=== PATIENT | male | born 1995 | race Caucasian/White ===

== ENCOUNTER 2023-08-14 14:12 | Inpatient (IN) | payer OTHER, SELFPAY ==
[2023-08-14 14:31] VITALS: BP 134/86; PULSE 88; RESP 16; TEMP 37.1; O2SAT 95; BMI 24.3
--- NOTE | 2023-08-14 14:31 | ED.GENADULT ---
HPI - General Adult General Chief complaint: Psychiatric Symptoms Stated complaint: evaluation sent in by [facility] Time Seen by Provider: 08/14/23 14:39 Source: patient and family (Father) Mode of arrival: ambulatory Limitations: no limitations History of Present Illness HPI narrative: Patient comes to the emergency room accompanied by his father. The father explains that patient has history of schizophrenia. Patient refused to take his medications since about a year ago, and gradually has been declining. Patient has sabianist preoccupation. Hyperverbal, responding to internal stimuli. Patient is not SI or HI. The patient was taken by his father earlier today to [facility], they were referred to [facility] for further evaluation and treatment. Patient whispering to himself. When asked how patient is feeling, patient responds ?so-so, getting there Related Data Allergies Allergy/AdvReac Type Severity Reaction Status Date / Time No Known Allergies Allergy Unverified 07/23/20 18:48 Review of Systems Review of Systems: Constitutional : No Weight loss, No Fever, No Chills, No Night Sweats, No Fatigue, No Malaise ENT/Mouth : No Hearing loss, No Ear Pain, No Nasal Congestion, No Sinus Pain, No Hoarseness, No sore throat, No Rhinorrhea, No Swallowing Difficulty Eyes: No Eye Pain, No Swelling, No Redness, No Foreign Body, No Discharge, No Vision Changes Cardiovascular : No Chest Pain, No SOB, No Dyspnea on Exertion, No Orthopnea, No Edema, No Palpitations Respiratory : No Cough, No Sputum, No Wheezing, No Smoke Exposure, No Dyspnea Gastrointestinal : No Nausea, No Vomiting, No Diarrhea, No Constipation, No abdominal Pain, No Hematochezia, No Melena Genitourinary : no irregular bleeding, No Dysuria, No Urinary Frequency, No Hematuria, No Urinary Incontinence, No Urgency, No Flank Pain, No Urinary Flow Changes, No Hesitancy Musculoskeletal : No joint pain, No Myalgias, No Joint Swelling Skin : No Skin Lesions, No rash Neuro : No Weakness, No Numbness, No Paresthesias, No Loss of Consciousness, No Dizziness, No Headache Psych : No Anxiety/Panic, No Depression, No SI/HI/AH/VH, patient states he is feeling ?so-so Heme/Lymph: No Bruising, No Bleeding,No Lymphadenopathy Endocrine : No Polyuria, No Polydipsia, No Temperature Intolerance [facility] Past Medical History Medical History Catatonia schizophrenia Schizophrenia Physical Exam ED Vital Signs: Vital Signs - 24 hr 08/14/23 14:31 Temperature 98.7 F Pulse Rate 88 Respiratory Rate 16 Blood Pressure 134/86 Pulse Oximetry 95 Oxygen Delivery Method Room Air BMI result Body Mass Index 24.3 Const Other: Appearance: Alert. Oriented X3. No acute distress. Eyes: Pupils equal, round and reactive to light. ENT: Pharynx normal. Neck: Normal inspection. Neck supple. No lymph nodes noted. No crepitus CVS: Normal heart rate and rhythm. Pulses normal. Normal S1 and S2 Respiratory: No respiratory distress. Breath sounds normal. No Wheezing. No rales Abdomen: Soft and nontender. No rigidity. No distention. Skin: Skin warm and dry. Normal skin color. Normal skin turgor. Extremities: No lower extremity edema. No Lacerations. No Rash Neuro: Oriented X 3. No motor deficit. No sensory deficit. Moving all extremities. No slurred speech. CN 2 through 12 grossly intact Psych: calm, cooperative, whispering to himself Course Course Course Narrative: RME performed by Carlotta Borjas PA-C. Patient is a 28 year old assigned male at presenting to the emergency department for a voluntary psych admission. Labs ordered. Medical Decision Making Medical Decision Making [facility] Narrative: -all of patient lab's pending, care team consult pending -patient's father is at bedside -patient calm, cooperative -physician observation started at 15:15 -I was informed by the care team that patient has already been evaluated by [facility], patient is an inpatient bed search Differential Diagnosis Differential Diagnoses: The differential diagnosis associated with the presentation includes (Schizophrenia, anxiety, depression) Admission/Observation Consideration of admission/observation: Escalation of care including admission/observation considered (Patient will be under observation until an inpatient bed is found for the patient) Critical Care Time Critical Care Time Critical Care Time: Yes Total Critical Care Time: 30 Attestation: I have personally provided critical care time. Time includes review of lab data, radiology results, discussion with consultants, and monitoring for potential decompensation. Intervention performed as documented. Discharge Plan Discharge Clinical Impression: Schizophrenia Patient Disposition: Still a Patient
--- NOTE | 2023-08-14 14:39 | MHC.CARE ---
Pt was assessed by [facility] and VOLUNTARY bedsearch
--- NOTE | 2023-08-14 14:57 | MHC.CARE ---
Pt was assessed by [facility] and found IPLOC
--- NOTE | 2023-08-14 15:26 | PC.NURSE ---
patient and father present for t/w's triage addendum. security don who has prior experience with client states that he may dash out the door impulsively if he sees an oppurtunity so t/w placed flight risk sign out. with father patient reports on gabapentin which he may not take every day for neuropathic pain and ativan po prn daily which he may not have taken for a day r two. patient accepted offer of ice cream and ham sandwich. dad said he would leave and possibly return with clothing for client if he is admitted. t/w advised restricted items, and visit times for both inpatient and for the pod. client declines drug and etoh use. patient did attest to hearing voices through spirit . because of his unique style of expression t/w asked about past autism dx, which client and parent declined.
--- NOTE | 2023-08-14 16:00 | MHC.CARE ---
CARE Team completed Section 12 for Pt.
--- NOTE | 2023-08-14 16:03 | PC.NURSE ---
in last hour, t/w and tech both observed client grabbing head and sometimes yelling out excitedly shannan lao and at one point simulating sex with the air im having sex with Shannan lao
--- NOTE | 2023-08-14 17:03 | PC.NURSE ---
given ordered gabapentin, seated in group area singing jeopardy theme song. some statements you have reason to be concerned
--- NOTE | 2023-08-14 17:07 | PC.NURSE ---
patient frequently self dialoguing in milieu, sometimes making unusual sounds and motions with hands and head.
--- NOTE | 2023-08-14 17:32 | PC.NURSE ---
pat laying in bed, i'm here! I'm back from the !
--- NOTE | 2023-08-14 17:59 | PC.NURSE ---
patient father reported hx that client had treatment w ect in past. patient currently self dialoguing youre not a mahogany patient verbally expressive in positive sounding grunts. redirected and patient complied. trying some moderate stimulus (ice cream) to help ground client.
--- NOTE | 2023-08-14 19:44 | MHC.EDTECH ---
t/w attempted to obtain labs from pt, pt refused stating he would like sleep first.' RN MADE AWARE.
--- NOTE | 2023-08-15 03:18 | PC.NURSE ---
Addendum entered by Darrin Crocker RN 08/15/23 03:44: Entered in error under incorrect user. This RN assumed care at initial time of this note as follows: Assumed care of pt. Pt lying on stretcher, no acute medical or behavioral concerns at this time. Eyes closed, respirations even and unlabored. Continuing safety monitoring and plan of care. Original Note: Assumed care of pt. Pt lying on stretcher, no acute medical or behavioral concerns at this time. Eyes closed, respirations even and unlabored. Continuing safety monitoring and plan of care.
--- NOTE | 2023-08-15 06:00 | PC.NURSE ---
Pt lying on stretcher, no acute medical or behavioral concerns at this time. Eyes closed, respirations even and unlabored. Continuing safety monitoring and plan of care.
[2023-08-15 06:19] VITALS: BP 119/53; PULSE 67; RESP 17; TEMP 36.4; O2SAT 97
--- NOTE | 2023-08-15 06:37 | PC.NURSE ---
Pt currently awake, making gestures around room, door closed, responding to internal stimuli, with hyperfixation on nondenominational; however, AxO x4 when questioned.
--- NOTE | 2023-08-15 07:15 | PC.NURSE ---
patient awake upon t/w's arrival to unit, periodically standing at window and expressive, some calling out (seems to continue pentecostalism preoccupation, looks like prayer) but seems in no distress.
[2023-08-15 15:43] VITALS: BP 135/80; PULSE 79; RESP 16; TEMP 36.8; O2SAT 98
[2023-08-15 17:10] VITALS: BP 128/79; PULSE 78; RESP 18; TEMP 36.4; O2SAT 99
--- NOTE | 2023-08-15 18:22 | PC.ADMIT ---
Sebastian is a 28 year old male who was admitted to the unit as a conditional voluntary from the [facility] where he presented after being assessed in the community by [facility] for psychosis after he was was exhibiting paranoid delusions, responding to internal stimuli, religiously preoccupied, disorganized thoughts, and pressured speech. Sebastian has not been taking medications at home except gabapentin, during admission process he states that he doesn't want any evil medications such as anti-psychotics or anti-depressants . During admission process patient was religiously pre-occupied with a tangential and disorganized thought process. Patient reported that he knows he needs to be here to overcome the trauma of previous admissions and the evil I was exposed to continued on without prompting to declare, God gave me a choice between a path of light or an overcoming path, I chose an overcoming path and I am responsible to act as an overcomer for the world. My purpose is to be the leader of Earth and bring all people's together to [place] .
[2023-08-15 20:25] VITALS: BP 123/81; PULSE 82; RESP 18; TEMP 36.9; O2SAT 100
[2023-08-16 08:51] VITALS: BP 131/81; PULSE 82; RESP 16; TEMP 37; O2SAT 96
--- NOTE | 2023-08-16 09:08 | P.HPPS_ITS ---
HPI Date of Service: 08/16/23 Chief Complaint: crisis Sources of Information: patient interviewed, chart reviewed and crisis/core team assessment reviewed HPI Subjective Notes: Conditional Voluntary Narrative: Patient is a 28 year old male with hx of schizophrenia and multiple psychiatric inpatient admissions who presented to [facility] clinic to establish outpatient services following a recent discharge from [facility] (07/20/23-08/04/23) and [facility] (06/29/23-07/13/23) where he presented with significant psychosis. Per crisis report, pt was observed responding to internal stimuli, restless, religiously preoccupied thoughts, disorganized, paranoid. Pt has a hx of medication non compliance, [place] Orders, catatonia and has limited insight into illness. During admission assessment, patient presents disorganized, guarded, with rapid and pressured speech at times. Religiously preoccupied, observed responding to internal stimuli throughout assessment, verbally and with body movements. Patient reports he is talking to God . Pt stated, I'm here to overcome the things that happened to me and other children by the Nazi's. I remember the procedures here . Pt spontaneously screaming at times, when asked for reasoning behind this, pt stated, I get pain in my brain from the memories. It's shock pains . He reports he feels God and gabapentin will heal me . Patient educated regarding antipsychotics; however he continued to state, God only wants gabapentin . Pt denies SI/HI/VH/AH. T/W spoke with patients mother (Nancy); who reported patient was recently discharged from [facility] but continued to present with psychosis. Patient has a hx of medication non-compliance; she reports patient has a hx of receiving Invega Sustenna with positive effects. Patient does not have any outpatient providers. Patient has a hx of receiving ECT (3 or 4 treatments) in 2018 which was helpful per mother. Nancy stated she would be willing to testify in court if needed to have her son receive medications because she is concerned for his safety. Past Psychiatric History: Inpatient hospitalization, [facility] (07/20/23- 08/04/23) and [facility] (06/29/23-07/13/23). ECT in 2018 (3/4 treatments) hx of Invega sustenna being helpful. Medical Evaluation Reviewed: Yes [facility] Medical History Catatonia schizophrenia Schizophrenia Family History: unknown Social History: Lives with mother, father and grandmother. Substance History: denies Trauma History: unknown Diagnostics Vital Signs (24Hr): Vital Signs - 24 hr 08/15/23 15:43 08/15/23 17:10 08/15/23 20:25 Temperature 98.2 F 97.6 F 98.4 F Pulse Rate 79 78 82 Respiratory Rate 16 18 18 Blood Pressure 135/80 128/79 123/81 Pulse Oximetry 98 99 100 Oxygen Delivery Method Room Air Room Air Room Air 08/16/23 08:51 Temperature 98.6 F Pulse Rate 82 Respiratory Rate 16 Blood Pressure 131/81 Pulse Oximetry 96 Oxygen Delivery Method Room Air BMI result Body Mass Index 24.3 Labs 08/15/23 00:08 08/16/23 08:20 Labs: Laboratory Results - last 48 hr 08/14/23 08/15/23 08/15/23 16:07 00:08 08:45 WBC 9.7 RBC 5.45 Hgb 16.6 Hct 47.1 MCV 86.4 MCH 30.5 MCHC 35.2 RDW 12.3 Plt Count 258 MPV 11.1 Immature Gran % (Auto) 0.3 Neut % (Auto) 52.9 Lymph % (Auto) 32.0 [place] % (Auto) 9.8 Eos % (Auto) 4.2 H Baso % (Auto) 0.8 Lymph # (Auto) 3.1 [place] # (Auto) 1.0 Eos # (Auto) 0.4 Baso # (Auto) 0.1 Abs Immat Gran (auto) 0.03 Absolute Neuts (auto) 5.1 Absolute Nucleated RBC 0.000 Nucleated RBC % (auto) 0.0 Sodium 140 Potassium 3.8 Chloride 106 Carbon Dioxide 24 Anion Gap 14 BUN 15 Creatinine 0.85 Estim Creat Clear Calc 118.8 Estimated GFR > 60 Random Glucose 95 Calcium 9.4 Total Bilirubin 0.5 AST 19 ALT 29 Alkaline Phosphatase 69 Total Protein 7.0 Albumin 4.2 Urine Color Yellow Urine Appearance Clear Urine pH 6.0 Ur Specific [place] 1.010 Urine Protein Negative Urine Glucose (UA) Negative Urine Ketones Negative Urine Blood Negative Urine Nitrite Negative Ur Leukocyte Esterase Negative Salicylates < 5.0 L Urine Opiates Screen Not Detected Urine Fentanyl Screen Not Detected Acetaminophen < 17 Ur Barbiturates Screen Not Detected Ur Phencyclidine Scrn Not Detected Ur Amphetamines Screen Not Detected U Benzodiazepines Scrn Not Detected Urine Cocaine Screen Not Detected U Marijuana (THC) Screen Not Detected Ethyl Alcohol < 10 COVID-19 (PABLO) Negative COVID-19 Clin Com See Note Meds/Allergies Meds Home Medications Medication Instructions Recorded Confirmed Type gabapentin 100 mg capsule 100 mg PO BID 08/14/23 08/14/23 History lorazepam 1 mg tablet 1 mg PO DAILY PRN anxiety 08/14/23 08/14/23 History Allergies Allergies Allergy/AdvReac Type Severity Reaction Status Date / Time No Known Allergies Allergy Verified 08/14/23 15:24 Mental Status Exam Mental Status Exam Narrative: Pt is alert and oriented; behavior is guarded, anxious; dressed in casual attire with unkempt hair; mood is described as anxious ; eye contact appropriate; Speech is rapid, and pressured; thought process is disorganized; Thought content is perseverative, delusional, paranoid, religiously preoccupied; denies SI/HI. Observed responding to internal stimuli. Patients insight and judgment are poor. Assessment & Plan Assessment & Plan (1) Schizophrenia: Status: Acute Code(s): F20.9 - Schizophrenia, unspecified Plan Patient is a 28 year old male with hx of schizophrenia and multiple psychiatric inpatient admissions who presented to [facility] clinic to establish outpatient services following a recent discharge from [facility] (07/20/23-08/04/23) and [facility] (06/29/23-07/13/23) where he presented with significant psychosis. Plan: CV 15 minute safety checks Continue home medications Obtain collateral Start: Paliperidone ER 3mg PO daily; with plan to receive SUAREZ. Patient educated on: diagnosis, medication risk/benefits and therapeutic strategies Guardian/Caregiver educated on: medication risk/benefits Informed Consent: understands and further education needed Reason for continued inpatient stay Substantial Risk for: harm to self, harm to others, inability to function and med/psych decompensation Statement Statement: I have reviewed the history and physical and performed a pertinent examination on my patient. No changes have occurred unless specified. If the History and Physical was not performed prior to admission, the Hospitalist's service will be consulted for completing the admission physical. Time Spent With Patient Time: Total time managing care of this patient today _60___ minutes.
[2023-08-16 09:23] LABS: Alanine Aminotransferase 37 U/L (0-40); Albumin Level 4.6 g/dL (3.5-5.0); Alkaline Phosphatase 72 U/L (39-117); Anion Gap 15 (12-20); Aspartate Amino Transferase 22 U/L (5-37); Bilirubin Total 0.8 mg/dL (0.0-1.0); Blood Urea Nitrogen 16 mg/dL (9-16); Calcium 9.7 mg/dL (8.4-10.2); Carbon Dioxide 23 mmol/L (22-29); Chloride 106 mmol/L (96-108); Cholesterol 220 mg/dL (<200); Estimated Glomerular Filt Rate > 60; Glucose Fasting 90 mg/dL (60-99); HDL Cholesterol 52 mg/dL (>40); LDL Cholesterol Calculated 144 mg/dL (<100); Potassium 4.3 mmol/L (3.3-5.1); Sodium 140 mmol/L (135-145); Total Protein 7.9 g/dL (6.5-8.0); Triglycerides 122 mg/dL (<150)
[2023-08-16 20:30] VITALS: BP 135/80; PULSE 93; TEMP 36.7; O2SAT 95
[2023-08-16] MEDS: Gabapentin 100 MG CAPSULE PO (20:41)
[2023-08-17 08:43] VITALS: BP 125/74; PULSE 89; RESP 16; TEMP 36.8; O2SAT 98
[2023-08-17] MEDS: Gabapentin 100 MG CAPSULE PO ×2 (08:44→22:27)
--- NOTE | 2023-08-17 09:44 | HO.PSYCHPN ---
Subjective Subjective Date of Service: 08/17/23 Reason For Visit: crisis Subjective Notes: Conditional Voluntary Interim History: Reviewed in team and . Patient continues to present disorganized, guarded and religiously preoccupied. Walking unit hallway, skipping at times. Observed responding to internal stimuli, states he is talking to God . T/W spoke to patient about Invega; pt stated, that was my old brain, this is my original brain and I only want to take gabapentin . During conversation patient would spontaneously blurt out statements such as, my flesh is being attracted to you and stay calm my child . Pt continues to refuse any medication other than gabapentin. Denies SI/HI/VH/AH. Medication Compliance: No Attending Groups: No Review of Systems Constitutional: Reports as per HPI Eyes: Reports as per HPI Reports as per HPI Cardiovascular: Reports as per HPI Respiratory: Reports as per HPI Gastrointestinal: Reports as per HPI Genitourinary: Reports as per HPI Musculoskeletal: Reports as per HPI Skin/Breast: Reports as per HPI Reports as per HPI Psychiatric: Reports as per HPI Endocrine: Reports as per HPI Hematologic/Lymphatic: Reports as per HPI Allergic/Immunologic: Reports as per HPI Mental Status Exam Mental Status Exam Narrative: Pt is alert and oriented; behavior is guarded, anxious; dressed in casual attire; mood is described as okay ; eye contact appropriate; Speech is rapid, and pressured; thought process is disorganized; Thought content is perseverative, delusional, paranoid, religiously preoccupied; denies SI/HI. Observed responding to internal stimuli. Patients insight and judgment are poor. Diagnostics Vital Signs (24Hr): Vital Signs - 24 hr 08/16/23 20:30 08/17/23 08:43 Temperature 98.1 F 98.2 F Pulse Rate 93 89 Respiratory Rate 16 Blood Pressure 135/80 125/74 Pulse Oximetry 95 98 Oxygen Delivery Method Room Air Room Air BMI result Body Mass Index 24.3 Labs 08/15/23 00:08 08/16/23 08:20 Labs: Laboratory Results - last 48 hr 08/16/23 08:20 Sodium 140 Potassium 4.3 Chloride 106 Carbon Dioxide 23 Anion Gap 15 BUN 16 Creatinine 0.87 Estim Creat Clear Calc 116.0 Estimated GFR > 60 Fasting Glucose 90 Calcium 9.7 Total Bilirubin 0.8 AST 22 ALT 37 Alkaline Phosphatase 72 Total Protein 7.9 Albumin 4.6 Triglycerides 122 Cholesterol 220 H LDL Cholesterol, Calc 144 H HDL Cholesterol 52 Medications Medications Current Medications Acetaminophen (Acetaminophen 325 Mg Tablet) 650 mg PO Q6H PRN PRN Reason: Headache/Pain Mild Scale (1-3) Al Hydroxide/Mg Hydroxide (Magnesium Hydrox/Alum Hydrox 30 Ml Oral.Susp) 30 ml PO Q6H PRN PRN Reason: Heartburn/Nausea Gabapentin (Gabapentin 100 Mg Capsule) 100 mg PO BID [facility] Last Admin: 08/17/23 08:44 Dose: 100 mg Hydroxyzine HCl (Hydroxyzine Hcl 25 Mg Tablet) 25 mg PO Q6H PRN PRN Reason: Anxiety Lorazepam (Lorazepam 1 Mg Tablet) 1 mg PO DAILY PRN PRN Reason: anxiety Lorazepam (Lorazepam 1 Mg Tablet) 1 mg PO BID [facility] Last Admin: 08/17/23 08:46 Dose: Not Given Magnesium Hydroxide (Milk Of Magnesia 30 Ml Oral.Susp) 30 ml PO DAILY PRN PRN Reason: Constipation Paliperidone (Paliperidone Er 3 Mg Tab.Er.24) 3 mg PO DAILY [facility] Last Admin: 08/17/23 08:46 Dose: Not Given Trazodone HCl (Trazodone Hcl 50 Mg Tablet) 50 mg PO BEDTIME MRX1 PRN PRN Reason: Insomnia Allergies Allergies Allergy/AdvReac Type Severity Reaction Status Date / Time No Known Allergies Allergy Verified 08/14/23 15:24 Assessment & Plan Assessment & Plan (1) Schizophrenia: Status: Acute Code(s): F20.9 - Schizophrenia, unspecified Plan Patient is a 28 year old male with hx of schizophrenia and multiple psychiatric inpatient admissions who presented to [facility] clinic to establish outpatient services following a recent discharge from [facility] (07/20/23-08/04/23) and [facility] (06/29/23-07/13/23) where he presented with significant psychosis. Plan: CV 15 minute safety checks Continue home medications Obtain collateral Start: Paliperidone ER 3mg PO daily; with plan to receive SUAREZ. 08/17: Patient continues to present disorganized, guarded and religiously preoccupied. Walking unit hallway, skipping at times. Observed responding to internal stimuli, states he is talking to God . T/W spoke to patient about Invega; pt stated, that was my old brain, this is my original brain and I only want to take gabapentin . During conversation patient would spontaneously blurt out statements such as, my flesh is being attracted to you and stay calm my child . Pt continues to refuse any medication other than gabapentin. Denies SI/HI/VH/AH. Continue to encourage medication compliance. Patient educated on: diagnosis and medication risk/benefits Informed Consent: understands and further education needed Reason for continued inpatient stay Substantial Risk for: med/psych decompensation Time Spent With Patient Time: Total time managing care of this patient today _30___ minutes.
[2023-08-17 12:57] VITALS: BMI 52.2
[2023-08-17 18:00] VITALS: BP 116/68; PULSE 80; RESP 16; TEMP 36.7; O2SAT 96
--- NOTE | 2023-08-17 22:46 | PC.NURSE ---
pt refused scheduled hs Ativan.
[2023-08-18 08:00] VITALS: BP 135/61; PULSE 71; TEMP 37.1; O2SAT 96
[2023-08-18] MEDS: Gabapentin 100 MG CAPSULE PO ×2 (08:56→20:22)
--- NOTE | 2023-08-18 09:26 | P.PNPSI_ITS ---
Subjective Subjective Date of Service: 08/18/23 Reason For Visit: crisis Subjective Notes: Conditional Voluntary Interim History: Reviewed in team and . Patient continues to present disorganized and religiously preoccupied. Walking unit hallway. Observed responding to internal stimuli, states he is talking to God . T/W spoke to patient about Invega; pt stated, God tells me only gabapentin . During conversation patient would spontaneously blurt out statements such as, stay calm my child and God will protect you Sebastian . Pt continues to refuse any medication other than gabapentin. Denies SI/HI/VH/AH. When asked what he plans to do when discharged, patient stated, I'm going to spend time with my family and friends. Maybe go for a hike or to the beach . Patient is able to have logical conversations. Showered, did laundry. T/W called mother, Nancy, and left VM. Waiting for call back. Medication Compliance: No Attending Groups: No Review of Systems Constitutional: Reports as per HPI Eyes: Reports as per HPI Reports as per HPI Cardiovascular: Reports as per HPI Respiratory: Reports as per HPI Gastrointestinal: Reports as per HPI Genitourinary: Reports as per HPI Musculoskeletal: Reports as per HPI Skin/Breast: Reports as per HPI Reports as per HPI Psychiatric: Reports as per HPI Endocrine: Reports as per HPI Hematologic/Lymphatic: Reports as per HPI Allergic/Immunologic: Reports as per HPI Mental Status Exam Mental Status Exam Narrative: Pt is alert and oriented; behavior is guarded, anxious; dressed in casual attire; mood is described as okay ; eye contact appropriate; Speech is rapid, and pressured; thought process is disorganized; Thought content is perseverative, delusional, paranoid, religiously preoccupied; denies SI/HI. Observed responding to internal stimuli. Patients insight and judgment are poor. Diagnostics Vital Signs (24Hr): Vital Signs - 24 hr 08/17/23 18:00 08/18/23 08:00 Temperature 98.0 F 98.8 F Pulse Rate 80 71 Respiratory Rate 16 Blood Pressure 116/68 135/61 Pulse Oximetry 96 96 Oxygen Delivery Method Room Air Room Air BMI result Body Mass Index 52.2 Labs 08/15/23 00:08 08/16/23 08:20 Medications Medications Current Medications Acetaminophen (Acetaminophen 325 Mg Tablet) 650 mg PO Q6H PRN PRN Reason: Headache/Pain Mild Scale (1-3) Al Hydroxide/Mg Hydroxide (Magnesium Hydrox/Alum Hydrox 30 Ml Oral.Susp) 30 ml PO Q6H PRN PRN Reason: Heartburn/Nausea Gabapentin (Gabapentin 100 Mg Capsule) 100 mg PO BID [facility] Last Admin: 08/18/23 08:56 Dose: 100 mg Hydroxyzine HCl (Hydroxyzine Hcl 25 Mg Tablet) 25 mg PO Q6H PRN PRN Reason: Anxiety Lorazepam (Lorazepam 1 Mg Tablet) 1 mg PO DAILY PRN PRN Reason: anxiety Lorazepam (Lorazepam 1 Mg Tablet) 1 mg PO BID [facility] Last Admin: 08/18/23 08:57 Dose: Not Given Magnesium Hydroxide (Milk Of Magnesia 30 Ml Oral.Susp) 30 ml PO DAILY PRN PRN Reason: Constipation Paliperidone (Paliperidone Er 3 Mg Tab.Er.24) 3 mg PO DAILY [facility] Last Admin: 08/18/23 08:57 Dose: Not Given Trazodone HCl (Trazodone Hcl 50 Mg Tablet) 50 mg PO BEDTIME MRX1 PRN PRN Reason: Insomnia Allergies Allergies Allergy/AdvReac Type Severity Reaction Status Date / Time No Known Allergies Allergy Verified 08/14/23 15:24 Assessment & Plan Assessment & Plan (1) Schizophrenia: Status: Acute Code(s): F20.9 - Schizophrenia, unspecified Plan Patient is a 28 year old male with hx of schizophrenia and multiple psychiatric inpatient admissions who presented to [facility] clinic to establish outpatient services following a recent discharge from [facility] (07/20/23-08/04/23) and [facility] (06/29/23-07/13/23) where he presented with significant psychosis. Plan: CV 15 minute safety checks Continue home medications Obtain collateral Start: Paliperidone ER 3mg PO daily; with plan to receive SUAREZ. 08/17: Patient continues to present disorganized, guarded and religiously preoccupied. Walking unit hallway, skipping at times. Observed responding to internal stimuli, states he is talking to God . T/W spoke to patient about Invega; pt stated, that was my old brain, this is my original brain and I only want to take gabapentin . During conversation patient would spontaneously blurt out statements such as, my flesh is being attracted to you and stay calm my child . Pt continues to refuse any medication other than gabapentin. Denies SI/HI/VH/AH. Continue to encourage medication compliance. 08/18: Patient continues to present disorganized and religiously preoccupied. Walking unit hallway. Observed responding to internal stimuli, states he is talking to God . T/W spoke to patient about Invega; pt stated, God tells me only gabapentin . During conversation patient would spontaneously blurt out statements such as, stay calm my child and God will protect you Sebastian . Pt continues to refuse any medication other than gabapentin. Denies SI/HI/VH/AH. When asked what he plans to do when discharged, patient stated, I'm going to spend time with my family and friends. Maybe go for a hike or to the beach . Patient is able to have logical conversations. Showered, did laundry. T/W called mother, Nancy, and left VM. Waiting for call back. Patient educated on: diagnosis and medication risk/benefits Informed Consent: understands and further education needed Reason for continued inpatient stay Substantial Risk for: med/psych decompensation Time Spent With Patient Time: Total time managing care of this patient today _30___ minutes.
[2023-08-18 18:00] VITALS: BP 130/58; PULSE 96; RESP 16; TEMP 36.3; O2SAT 99
[2023-08-19 09:25] VITALS: BP 113/76; PULSE 76; RESP 16; TEMP 36.9; O2SAT 98
[2023-08-19] MEDS: Gabapentin 100 MG CAPSULE PO ×2 (09:29→21:38)
--- NOTE | 2023-08-19 16:47 | P.PNPSI_ITS ---
Subjective Subjective Date of Service: 08/19/23 Reason For Visit: crisis Medication Compliance: No Side effects from medications: No Attending Groups: No Review of Systems Continues to present with oriental orthodox delusions, hallucinating, laughing to self. Sleep ok. Appetite ok. Refusing meds. No evidence of SI. Review of Systems Review of Systems nothing acute Mental Status Exam Mental Status Exam Narrative: Pt is alert and oriented; behavior is guarded, anxious; dressed in casual attire; mood is described as okay ; eye contact appropriate; Speech is rapid, and pressured; thought process is disorganized; Thought content is perseverative, delusional, paranoid, religiously preoccupied; denies SI/HI. Observed responding to internal stimuli. Patients insight and judgment are poor. Diagnostics Vital Signs (24Hr): Vital Signs - 24 hr 08/18/23 18:00 08/19/23 09:25 Temperature 97.3 F 98.4 F Pulse Rate 96 76 Respiratory Rate 16 16 Blood Pressure 130/58 L 113/76 Pulse Oximetry 99 98 Oxygen Delivery Method Room Air Room Air BMI result Body Mass Index 52.2 Labs 08/15/23 00:08 08/16/23 08:20 Medications Medications Current Medications Acetaminophen (Acetaminophen 325 Mg Tablet) 650 mg PO Q6H PRN PRN Reason: Headache/Pain Mild Scale (1-3) Al Hydroxide/Mg Hydroxide (Magnesium Hydrox/Alum Hydrox 30 Ml Oral.Susp) 30 ml PO Q6H PRN PRN Reason: Heartburn/Nausea Gabapentin (Gabapentin 100 Mg Capsule) 100 mg PO BID [facility] Last Admin: 08/19/23 09:29 Dose: 100 mg Hydroxyzine HCl (Hydroxyzine Hcl 25 Mg Tablet) 25 mg PO Q6H PRN PRN Reason: Anxiety Lorazepam (Lorazepam 1 Mg Tablet) 1 mg PO DAILY PRN PRN Reason: anxiety Lorazepam (Lorazepam 1 Mg Tablet) 1 mg PO BID [facility] Last Admin: 08/19/23 09:31 Dose: Not Given Magnesium Hydroxide (Milk Of Magnesia 30 Ml Oral.Susp) 30 ml PO DAILY PRN PRN Reason: Constipation Paliperidone (Paliperidone Er 3 Mg Tab.Er.24) 3 mg PO DAILY [facility] Last Admin: 08/19/23 09:31 Dose: Not Given Trazodone HCl (Trazodone Hcl 50 Mg Tablet) 50 mg PO BEDTIME MRX1 PRN PRN Reason: Insomnia Allergies Allergies Allergy/AdvReac Type Severity Reaction Status Date / Time No Known Allergies Allergy Verified 08/14/23 15:24 Assessment & Plan Assessment & Plan (1) Schizophrenia: Status: Acute Code(s): F20.9 - Schizophrenia, unspecified Plan Patient is a 28 year old male with hx of schizophrenia and multiple psychiatric inpatient admissions who presented to [facility] clinic to establish outpatient services following a recent discharge from [facility] (07/20/23-08/04/23) and [facility] (06/29/23-07/13/23) where he presented with significant psychosis. Plan: CV 15 minute safety checks Continue home medications Obtain collateral Start: Paliperidone ER 3mg PO daily; with plan to receive SUAREZ. 08/17: Patient continues to present disorganized, guarded and religiously preoccupied. Walking unit hallway, skipping at times. Observed responding to internal stimuli, states he is talking to God . T/W spoke to patient about Invega; pt stated, that was my old brain, this is my original brain and I only want to take gabapentin . During conversation patient would spontaneously blurt out statements such as, my flesh is being attracted to you and stay calm my child . Pt continues to refuse any medication other than gabapentin. Denies SI/HI/VH/AH. Continue to encourage medication compliance. 08/18: Patient continues to present disorganized and religiously preoccupied. Walking unit hallway. Observed responding to internal stimuli, states he is talking to God . T/W spoke to patient about Invega; pt stated, God tells me only gabapentin . During conversation patient would spontaneously blurt out statements such as, stay calm my child and God will protect you Sebastian . Pt continues to refuse any medication other than gabapentin. Denies SI/HI/VH/AH. When asked what he plans to do when discharged, patient stated, I'm going to spend time with my family and friends. Maybe go for a hike or to the beach . Patient is able to have logical conversations. Showered, did laundry. T/W called mother, Nancy, and left VM. Waiting for call back. 08/19: continues to decline meds Reason for continued inpatient stay Substantial Risk for: inability to function Time Spent With Patient Time: Total time managing care of this patient today ____ minutes.
[2023-08-19 21:00] VITALS: BP 120/82; PULSE 81; RESP 18; TEMP 36.9; O2SAT 96
[2023-08-20 10:15] VITALS: BP 127/83; PULSE 84; RESP 16; TEMP 37.7; O2SAT 96
[2023-08-20] MEDS: Gabapentin 100 MG CAPSULE PO ×2 (10:17→21:09)
[2023-08-20 14:20] VITALS: TEMP 37.2
--- NOTE | 2023-08-20 15:20 | HO.PSYCHPN ---
Subjective Subjective Date of Service: 08/20/23 Reason For Visit: crisis Interim History: Met with patient. Discussed with Nursing. Continues to present psychotic, internally preoccupied and talking to himself when nobody is around. With production underwriter states that things are going well. Denies he is hallucinating. Reports that God is helping by directing and guiding him. Sleep okay. Still refusing medications. Medication Compliance: No Side effects from medications: No Attending Groups: No Review of Systems Acute medical concerns: No Review of Systems Review of Systems nothing acute Constitutional: Reports as per HPI Eyes: Reports as per HPI Reports as per HPI Cardiovascular: Reports as per HPI Respiratory: Reports as per HPI Gastrointestinal: Reports as per HPI Genitourinary: Reports as per HPI Musculoskeletal: Reports as per HPI Skin/Breast: Reports as per HPI Reports as per HPI Psychiatric: Reports as per HPI Endocrine: Reports as per HPI Hematologic/Lymphatic: Reports as per HPI Allergic/Immunologic: Reports as per HPI Mental Status Exam Mental Status Exam Narrative: Pt is alert and oriented; behavior is guarded, anxious; dressed in casual attire; mood is described as okay ; eye contact appropriate; Speech is rapid, and pressured; thought process is disorganized; Thought content is perseverative, delusional, paranoid, religiously preoccupied; denies SI/HI. Observed responding to internal stimuli. Patients insight and judgment are poor. Diagnostics Vital Signs (24Hr): Vital Signs - 24 hr 08/19/23 21:00 Temperature 98.4 F Pulse Rate 81 Respiratory Rate 18 Blood Pressure 120/82 Pulse Oximetry 96 Oxygen Delivery Method Room Air BMI result Body Mass Index 52.2 Labs 08/15/23 00:08 08/16/23 08:20 Medications Medications Current Medications Acetaminophen (Acetaminophen 325 Mg Tablet) 650 mg PO Q6H PRN PRN Reason: Headache/Pain Mild Scale (1-3) Al Hydroxide/Mg Hydroxide (Magnesium Hydrox/Alum Hydrox 30 Ml Oral.Susp) 30 ml PO Q6H PRN PRN Reason: Heartburn/Nausea Gabapentin (Gabapentin 100 Mg Capsule) 100 mg PO BID [facility] Last Admin: 08/20/23 10:17 Dose: 100 mg Hydroxyzine HCl (Hydroxyzine Hcl 25 Mg Tablet) 25 mg PO Q6H PRN PRN Reason: Anxiety Lorazepam (Lorazepam 1 Mg Tablet) 1 mg PO BID [facility] Last Admin: 08/20/23 10:18 Dose: Not Given Magnesium Hydroxide (Milk Of Magnesia 30 Ml Oral.Susp) 30 ml PO DAILY PRN PRN Reason: Constipation Paliperidone (Paliperidone Er 3 Mg Tab.Er.24) 3 mg PO DAILY [facility] Last Admin: 08/20/23 10:19 Dose: Not Given Trazodone HCl (Trazodone Hcl 50 Mg Tablet) 50 mg PO BEDTIME MRX1 PRN PRN Reason: Insomnia Allergies Allergies Allergy/AdvReac Type Severity Reaction Status Date / Time No Known Allergies Allergy Verified 08/14/23 15:24 Assessment & Plan Assessment & Plan (1) Schizophrenia: Status: Acute Code(s): F20.9 - Schizophrenia, unspecified Plan Patient is a 28 year old male with hx of schizophrenia and multiple psychiatric inpatient admissions who presented to [facility] clinic to establish outpatient services following a recent discharge from [facility] (07/20/23-08/04/23) and [facility] (06/29/23-07/13/23) where he presented with significant psychosis. Plan: CV 15 minute safety checks Continue home medications Obtain collateral Start: Paliperidone ER 3mg PO daily; with plan to receive SUAREZ. 08/17: Patient continues to present disorganized, guarded and religiously preoccupied. Walking unit hallway, skipping at times. Observed responding to internal stimuli, states he is talking to God . T/W spoke to patient about Invega; pt stated, that was my old brain, this is my original brain and I only want to take gabapentin . During conversation patient would spontaneously blurt out statements such as, my flesh is being attracted to you and stay calm my child . Pt continues to refuse any medication other than gabapentin. Denies SI/HI/VH/AH. Continue to encourage medication compliance. 08/18: Patient continues to present disorganized and religiously preoccupied. Walking unit hallway. Observed responding to internal stimuli, states he is talking to God . T/W spoke to patient about Invega; pt stated, God tells me only gabapentin . During conversation patient would spontaneously blurt out statements such as, stay calm my child and God will protect you Sebastian . Pt continues to refuse any medication other than gabapentin. Denies SI/HI/VH/AH. When asked what he plans to do when discharged, patient stated, I'm going to spend time with my family and friends. Maybe go for a hike or to the beach . Patient is able to have logical conversations. Showered, did laundry. T/W called mother, Nancy, and left VM. Waiting for call back. 08/19: continues to decline meds 08/20: still declining meds Reason for continued inpatient stay Substantial Risk for: inability to function Time Spent With Patient Time: Total time managing care of this patient today ____ minutes.
[2023-08-20 19:05] VITALS: BP 130/84; PULSE 76; RESP 16; TEMP 36.3; O2SAT 98
[2023-08-21] MEDS: Gabapentin 100 MG CAPSULE PO ×2 (08:37→20:34)
[2023-08-21 08:51] VITALS: BP 109/56; PULSE 60; RESP 16; TEMP 36.6; O2SAT 96
[2023-08-21 19:50] VITALS: BP 122/71; PULSE 93; RESP 16; TEMP 36; O2SAT 97
--- NOTE | 2023-08-21 20:19 | HO.PSYCHPN ---
Subjective Subjective Date of Service: 08/21/23 Reason For Visit: crisis Interim History: calm, cooperative. observed pacing the horowitz talking to himself. addressing entities unobservable in the room while speaking with MD (looks aside from MD and says, why all these questions? then turns back to MD and continues conversation). states he is not interested in signing a 3-day notice, explaining he is here on god's time and is awaiting god's action for him to leave the hospital. per staff, making spitting and swinging sounds. taking only gabapentin. Mental Status Exam Mental Status Exam Narrative: Pt is alert and oriented; behavior is guarded; dressed in casual attire; mood is described as okay ; eye contact appropriate; Speech is rapid; thought process is disorganized; Thought content is perseverative, delusional, paranoid, religiously preoccupied; denies SI/HI. Observed responding to internal stimuli. Patients insight and judgment are poor. Diagnostics Vital Signs (24Hr): Vital Signs - 24 hr 08/21/23 08:51 08/21/23 19:50 Temperature 97.9 F 96.8 F Pulse Rate 60 93 Respiratory Rate 16 16 Blood Pressure 109/56 L 122/71 Pulse Oximetry 96 97 Oxygen Delivery Method Room Air Room Air BMI result Body Mass Index 52.2 Labs 08/15/23 00:08 08/16/23 08:20 Medications Medications Current Medications Acetaminophen (Acetaminophen 325 Mg Tablet) 650 mg PO Q6H PRN PRN Reason: Headache/Pain Mild Scale (1-3) Al Hydroxide/Mg Hydroxide (Magnesium Hydrox/Alum Hydrox 30 Ml Oral.Susp) 30 ml PO Q6H PRN PRN Reason: Heartburn/Nausea Gabapentin (Gabapentin 100 Mg Capsule) 100 mg PO BID [facility] Last Admin: 08/21/23 08:37 Dose: 100 mg Hydroxyzine HCl (Hydroxyzine Hcl 25 Mg Tablet) 25 mg PO Q6H PRN PRN Reason: Anxiety Lorazepam (Lorazepam 1 Mg Tablet) 1 mg PO BID [facility] Last Admin: 08/21/23 08:40 Dose: Not Given Magnesium Hydroxide (Milk Of Magnesia 30 Ml Oral.Susp) 30 ml PO DAILY PRN PRN Reason: Constipation Paliperidone (Paliperidone Er 3 Mg Tab.Er.24) 3 mg PO DAILY [facility] Last Admin: 08/21/23 08:40 Dose: Not Given Trazodone HCl (Trazodone Hcl 50 Mg Tablet) 50 mg PO BEDTIME MRX1 PRN PRN Reason: Insomnia Allergies Allergies Allergy/AdvReac Type Severity Reaction Status Date / Time No Known Allergies Allergy Verified 08/14/23 15:24 Assessment & Plan Assessment & Plan (1) Schizophrenia: Status: Acute Code(s): F20.9 - Schizophrenia, unspecified Plan Patient is a 28 year old male with hx of schizophrenia and multiple psychiatric inpatient admissions who presented to [facility] clinic to establish outpatient services following a recent discharge from [facility] (07/20/23-08/04/23) and [facility] (06/29/23-07/13/23) where he presented with significant psychosis. Plan: CV 15 minute safety checks Continue home medications Obtain collateral Start: Paliperidone ER 3mg PO daily; with plan to receive SUAREZ. 08/17: Patient continues to present disorganized, guarded and religiously preoccupied. Walking unit hallway, skipping at times. Observed responding to internal stimuli, states he is talking to God . T/W spoke to patient about Invega; pt stated, that was my old brain, this is my original brain and I only want to take gabapentin . During conversation patient would spontaneously blurt out statements such as, my flesh is being attracted to you and stay calm my child . Pt continues to refuse any medication other than gabapentin. Denies SI/HI/VH/AH. Continue to encourage medication compliance. 08/18: Patient continues to present disorganized and religiously preoccupied. Walking unit hallway. Observed responding to internal stimuli, states he is talking to God . T/W spoke to patient about Invega; pt stated, God tells me only gabapentin . During conversation patient would spontaneously blurt out statements such as, stay calm my child and God will protect you Sebastian . Pt continues to refuse any medication other than gabapentin. Denies SI/HI/VH/AH. When asked what he plans to do when discharged, patient stated, I'm going to spend time with my family and friends. Maybe go for a hike or to the beach . Patient is able to have logical conversations. Showered, did laundry. T/W called mother, Nancy, and left VM. Waiting for call back. 08/19: continues to decline meds 08/20: still declining meds 08/21: refusing meds. no change in presentation. Reason for continued inpatient stay Substantial Risk for: inability to function Time Spent With Patient Time: Total time managing care of this patient today __25__ minutes.
[2023-08-22 08:24] VITALS: BP 119/77; PULSE 74; RESP 20; TEMP 36.6; O2SAT 97
[2023-08-22] MEDS: Gabapentin 100 MG CAPSULE PO ×2 (08:28→21:20)
--- NOTE | 2023-08-22 09:32 | P.PNPSI_ITS ---
Documented by User: Aspen Pitts NP 08/22/23 18:09 Subjective Subjective Date of Service: 08/22/23 Reason For Visit: crisis Subjective Notes: Conditional Voluntary Interim History: Reviewed in team and . Patient continues to presents religiously preoccupied. Observed responding to internal stimuli; when asked who he is talking to pt stated, I'm talking to God and getting rid of the evil inside of me and confessing; he speaks in my heart . Patient observed moaning loudly at times with pt reporting he is getting rid of the evil . Continues to refuse medications other than gabapentin. denies SI/HI. Medication Compliance: Intermittent Side effects from medications: No Attending Groups: No Review of Systems Constitutional: Reports as per HPI Eyes: Reports as per HPI Reports as per HPI Cardiovascular: Reports as per HPI Respiratory: Reports as per HPI Gastrointestinal: Reports as per HPI Genitourinary: Reports as per HPI Musculoskeletal: Reports as per HPI Skin/Breast: Reports as per HPI Reports as per HPI Psychiatric: Reports as per HPI Endocrine: Reports as per HPI Hematologic/Lymphatic: Reports as per HPI Allergic/Immunologic: Reports as per HPI Mental Status Exam Mental Status Exam Narrative: Pt is alert and oriented; behavior is guarded, anxious; dressed in casual attire; mood is described as okay ; eye contact appropriate; Speech is normal rate, but pressured; thought process is disorganized; Thought content is perseverative, delusional, paranoid, religiously preoccupied; denies SI/HI. Observed responding to internal stimuli. Patients insight and judgment are poor. Diagnostics Vital Signs (24Hr): Vital Signs - 24 hr 08/21/23 19:50 08/22/23 08:24 Temperature 96.8 F 97.9 F Pulse Rate 93 74 Respiratory Rate 16 20 Blood Pressure 122/71 119/77 Pulse Oximetry 97 97 Oxygen Delivery Method Room Air Room Air BMI result Body Mass Index 52.2 Labs 08/15/23 00:08 08/16/23 08:20 Medications Medications Current Medications Acetaminophen (Acetaminophen 325 Mg Tablet) 650 mg PO Q6H PRN PRN Reason: Headache/Pain Mild Scale (1-3) Al Hydroxide/Mg Hydroxide (Magnesium Hydrox/Alum Hydrox 30 Ml Oral.Susp) 30 ml PO Q6H PRN PRN Reason: Heartburn/Nausea Gabapentin (Gabapentin 100 Mg Capsule) 100 mg PO BID [facility] Last Admin: 08/22/23 08:28 Dose: 100 mg Hydroxyzine HCl (Hydroxyzine Hcl 25 Mg Tablet) 25 mg PO Q6H PRN PRN Reason: Anxiety Lorazepam (Lorazepam 1 Mg Tablet) 1 mg PO BID [facility] Last Admin: 08/22/23 08:29 Dose: Not Given Magnesium Hydroxide (Milk Of Magnesia 30 Ml Oral.Susp) 30 ml PO DAILY PRN PRN Reason: Constipation Paliperidone (Paliperidone Er 3 Mg Tab.Er.24) 3 mg PO DAILY [facility] Last Admin: 08/22/23 08:29 Dose: Not Given Trazodone HCl (Trazodone Hcl 50 Mg Tablet) 50 mg PO BEDTIME MRX1 PRN PRN Reason: Insomnia Allergies Allergies Allergy/AdvReac Type Severity Reaction Status Date / Time No Known Allergies Allergy Verified 08/14/23 15:24 Assessment & Plan Assessment & Plan (1) Schizophrenia: Status: Acute Code(s): F20.9 - Schizophrenia, unspecified Plan Patient is a 28 year old male with hx of schizophrenia and multiple psychiatric inpatient admissions who presented to [facility] clinic to establish outpatient services following a recent discharge from [facility] (07/20/23-08/04/23) and [facility] (06/29/23-07/13/23) where he presented with significant psychosis. Plan: CV 15 minute safety checks Continue home medications Obtain collateral Start: Paliperidone ER 3mg PO daily; with plan to receive SUAREZ. 08/17: Patient continues to present disorganized, guarded and religiously preoccupied. Walking unit hallway, skipping at times. Observed responding to internal stimuli, states he is talking to God . T/W spoke to patient about Invega; pt stated, that was my old brain, this is my original brain and I only want to take gabapentin . During conversation patient would spontaneously blurt out statements such as, my flesh is being attracted to you and stay calm my child . Pt continues to refuse any medication other than gabapentin. Denies SI/HI/VH/AH. Continue to encourage medication compliance. 08/18: Patient continues to present disorganized and religiously preoccupied. Walking unit hallway. Observed responding to internal stimuli, states he is talking to God . T/W spoke to patient about Invega; pt stated, God tells me only gabapentin . During conversation patient would spontaneously blurt out statements such as, stay calm my child and God will protect you Sebastian . Pt continues to refuse any medication other than gabapentin. Denies SI/HI/VH/AH. When asked what he plans to do when discharged, patient stated, I'm going to spend time with my family and friends. Maybe go for a hike or to the beach . Patient is able to have logical conversations. Showered, did laundry. T/W called mother, Nancy, and left VM. Waiting for call back. 08/19: continues to decline meds 08/20: still declining meds 08/21: refusing meds. no change in presentation. 08/22: Patient continues to presents religiously preoccupied. Observed responding to internal stimuli; when asked who he is talking to pt stated, I'm talking to God and getting rid of the evil inside of me and confessing; he speaks in my heart . Patient observed moaning loudly at times with pt reporting he is getting rid of the evil . Continues to refuse medications other than gabapentin. denies SI/HI. to see patient tomorrow. Patient educated on: diagnosis and medication risk/benefits Informed Consent: understands and further education needed Reason for continued inpatient stay Substantial Risk for: med/psych decompensation Time Spent With Patient Time: Total time managing care of this patient today _30___ minutes. Documented by User: Dragan Villalta MD 08/23/23 11:16 Subjective Subjective Reason For Visit: crisis Diagnostics Labs 08/15/23 00:08 08/16/23 08:20 Assessment & Plan Assessment & Plan (1) Schizophrenia: Status: Acute Code(s): F20.9 - Schizophrenia, unspecified Plan Patient is a 28 year old male with hx of schizophrenia and multiple psychiatric inpatient admissions who presented to [facility] clinic to establish outpatient services following a recent discharge from [facility] (07/20/23-08/04/23) and [facility] (06/29/23-07/13/23) where he presented with significant psychosis. Plan: CV 15 minute safety checks Continue home medications Obtain collateral Start: Paliperidone ER 3mg PO daily; with plan to receive SUAREZ. 08/17: Patient continues to present disorganized, guarded and religiously preoccupied. Walking unit hallway, skipping at times. Observed responding to internal stimuli, states he is talking to God . T/W spoke to patient about Invega; pt stated, that was my old brain, this is my original brain and I only want to take gabapentin . During conversation patient would spontaneously blurt out statements such as, my flesh is being attracted to you and stay calm my child . Pt continues to refuse any medication other than gabapentin. Denies SI/HI/VH/AH. Continue to encourage medication compliance. 08/18: Patient continues to present disorganized and religiously preoccupied. Walking unit hallway. Observed responding to internal stimuli, states he is talking to God . T/W spoke to patient about Invega; pt stated, God tells me only gabapentin . During conversation patient would spontaneously blurt out statements such as, stay calm my child and God will protect you Sebastian . Pt continues to refuse any medication other than gabapentin. Denies SI/HI/VH/AH. When asked what he plans to do when discharged, patient stated, I'm going to spend time with my family and friends. Maybe go for a hike or to the beach . Patient is able to have logical conversations. Showered, did laundry. T/W called mother, Nancy, and left VM. Waiting for call back. 08/19: continues to decline meds 08/20: still declining meds 08/21: refusing meds. no change in presentation. 08/22: Patient continues to presents religiously preoccupied. Observed responding to internal stimuli; when asked who he is talking to pt stated, I'm talking to God and getting rid of the evil inside of me and confessing; he speaks in my heart . Patient observed moaning loudly at times with pt reporting he is getting rid of the evil . Continues to refuse medications other than gabapentin. denies SI/HI.
[2023-08-22 18:00] VITALS: BP 130/60; PULSE 85; RESP 16; TEMP 36.6; O2SAT 96
[2023-08-23] MEDS: Gabapentin 100 MG CAPSULE PO ×2 (08:40→21:10)
[2023-08-23 10:10] VITALS: BP 122/63; PULSE 75; RESP 16; TEMP 37.1; O2SAT 95
--- NOTE | 2023-08-23 17:57 | HO.PSYCHPN ---
Subjective Subjective Date of Service: 08/23/23 Reason For Visit: crisis Subjective Notes: Conditional Voluntary Interim History: Met with patient with present. Patient continues to presents religiously preoccupied. Observed responding to internal stimuli; continues to refuse medications other than gabapentin. He presents with grandiose delusions; believes he is similar to Bill and God speaks to him . Patient reports he does not like taking medications because of how they make him feel. Patient states he would never hurt himself or anyone else and only wants to help people. denies SI/HI/AH/VH. T/W and Dr. Villalta spoke to patient's mother, Nancy, via phone. Various topics were discussed regarding treatment for Sebastian; such as Nancy obtaining a [employer]'s order, helping her son apply for [facility] services or attempting to have guardianship. Nancy expressed she has previously obtained a [place] order and had filled out guardianship documents but did not complete d/t patient's mental status improving with medication compliance. It was explained to Nancy that with the patient's current presentation he currently does not present with any behaviors that would deem him a danger to himself or someone else. He is also capable of taking care of his basic needs. The plan would be to discharge the patient home since he is refusing to participate in psychiatric treatment at this time. Medication Compliance: No Side effects from medications: No Attending Groups: No Review of Systems Review of Systems nothing acute Constitutional: Reports as per HPI Eyes: Reports as per HPI Reports as per HPI Cardiovascular: Reports as per HPI Respiratory: Reports as per HPI Gastrointestinal: Reports as per HPI Genitourinary: Reports as per HPI Musculoskeletal: Reports as per HPI Skin/Breast: Reports as per HPI Reports as per HPI Psychiatric: Reports as per HPI Endocrine: Reports as per HPI Hematologic/Lymphatic: Reports as per HPI Allergic/Immunologic: Reports as per HPI Mental Status Exam Mental Status Exam Narrative: Pt is alert and oriented; behavior is guarded, anxious; dressed in casual attire; mood is described as okay ; eye contact appropriate; Speech is normal rate, but pressured; thought process is disorganized; Thought content is perseverative, delusional, paranoid, religiously preoccupied; denies SI/HI. Observed responding to internal stimuli. Patients insight and judgment are poor. Diagnostics Vital Signs (24Hr): Vital Signs - 24 hr 08/22/23 18:00 08/23/23 10:10 Temperature 97.9 F 98.8 F Pulse Rate 85 75 Respiratory Rate 16 16 Blood Pressure 130/60 122/63 Pulse Oximetry 96 95 Oxygen Delivery Method Room Air Room Air BMI result Body Mass Index 52.2 Labs 08/15/23 00:08 08/16/23 08:20 Medications Medications Current Medications Acetaminophen (Acetaminophen 325 Mg Tablet) 650 mg PO Q6H PRN PRN Reason: Headache/Pain Mild Scale (1-3) Al Hydroxide/Mg Hydroxide (Magnesium Hydrox/Alum Hydrox 30 Ml Oral.Susp) 30 ml PO Q6H PRN PRN Reason: Heartburn/Nausea Gabapentin (Gabapentin 100 Mg Capsule) 100 mg PO BID [facility] Last Admin: 08/23/23 08:40 Dose: 100 mg Hydroxyzine HCl (Hydroxyzine Hcl 25 Mg Tablet) 25 mg PO Q6H PRN PRN Reason: Anxiety Lorazepam (Lorazepam 1 Mg Tablet) 1 mg PO BID [facility] Last Admin: 08/23/23 08:40 Dose: Not Given Magnesium Hydroxide (Milk Of Magnesia 30 Ml Oral.Susp) 30 ml PO DAILY PRN PRN Reason: Constipation Paliperidone (Paliperidone Er 3 Mg Tab.Er.24) 3 mg PO DAILY [facility] Last Admin: 08/23/23 08:40 Dose: Not Given Trazodone HCl (Trazodone Hcl 50 Mg Tablet) 50 mg PO BEDTIME MRX1 PRN PRN Reason: Insomnia Allergies Allergies Allergy/AdvReac Type Severity Reaction Status Date / Time No Known Allergies Allergy Verified 08/14/23 15:24 Assessment & Plan Assessment & Plan (1) Schizophrenia: Status: Acute Code(s): F20.9 - Schizophrenia, unspecified Plan Patient is a 28 year old male with hx of schizophrenia and multiple psychiatric inpatient admissions who presented to [facility] clinic to establish outpatient services following a recent discharge from [facility] (07/20/23-08/04/23) and [facility] (06/29/23-07/13/23) where he presented with significant psychosis. Plan: CV 15 minute safety checks Continue home medications Obtain collateral Start: Paliperidone ER 3mg PO daily; with plan to receive SUAREZ. 08/17: Patient continues to present disorganized, guarded and religiously preoccupied. Walking unit hallway, skipping at times. Observed responding to internal stimuli, states he is talking to God . T/W spoke to patient about Invega; pt stated, that was my old brain, this is my original brain and I only want to take gabapentin . During conversation patient would spontaneously blurt out statements such as, my flesh is being attracted to you and stay calm my child . Pt continues to refuse any medication other than gabapentin. Denies SI/HI/VH/AH. Continue to encourage medication compliance. 08/18: Patient continues to present disorganized and religiously preoccupied. Walking unit hallway. Observed responding to internal stimuli, states he is talking to God . T/W spoke to patient about Invega; pt stated, God tells me only gabapentin . During conversation patient would spontaneously blurt out statements such as, stay calm my child and God will protect you Sebastian . Pt continues to refuse any medication other than gabapentin. Denies SI/HI/VH/AH. When asked what he plans to do when discharged, patient stated, I'm going to spend time with my family and friends. Maybe go for a hike or to the beach . Patient is able to have logical conversations. Showered, did laundry. T/W called mother, Nancy, and left VM. Waiting for call back. 08/19: continues to decline meds 08/20: still declining meds 08/21: refusing meds. no change in presentation. 08/22: Patient continues to presents religiously preoccupied. Observed responding to internal stimuli; when asked who he is talking to pt stated, I'm talking to God and getting rid of the evil inside of me and confessing; he speaks in my heart . Patient observed moaning loudly at times with pt reporting he is getting rid of the evil . Continues to refuse medications other than gabapentin. denies SI/HI. 08/23: Met with patient with present. Patient continues to presents religiously preoccupied. Observed responding to internal stimuli; continues to refuse medications other than gabapentin. He presents with grandiose delusions; believes he is similar to Bill and God speaks to him . Patient reports he does not like taking medications because of how they make him feel. Patient states he would never hurt himself or anyone else and only wants to help people. denies SI/HI/AH/VH. T/W and Dr. Villalta spoke to patient's mother, Nancy, via phone. Various topics were discussed regarding treatment for Sebastian; such as Nancy obtaining a [employer] order, helping her son apply for [facility] services or attempting to have guardianship. Nancy expressed she has previously obtained a [place] order and had filled out guardianship documents but did not complete d/t patient's mental status improving with medication compliance. It was explained to Nancy that with the patient's current presentation he currently does not present with any behaviors that would deem him a danger to himself or someone else. He is also capable of taking care of his basic needs. The plan would be to discharge the patient home since he is refusing to participate in psychiatric treatment at this time. Patient educated on: diagnosis and medication risk/benefits Guardian/Caregiver educated on: diagnosis, medication risk/benefits, therapeutic strategies and other Informed Consent: understands and further education needed Reason for continued inpatient stay Substantial Risk for: med/psych decompensation Time Spent With Patient Time: Total time managing care of this patient today _30___ minutes.
[2023-08-23 20:00] VITALS: BP 122/57; PULSE 76; RESP 18; TEMP 36.7; O2SAT 95
[2023-08-24] MEDS: Gabapentin 100 MG CAPSULE PO ×2 (08:48→20:18)
--- NOTE | 2023-08-24 09:13 | P.PNPSI_ITS ---
Subjective Subjective Date of Service: 08/24/23 Reason For Visit: crisis Subjective Notes: Conditional Voluntary Interim History: Reviewed in team and . Patient continues to presents religiously preoccupied, logical. Observed responding to internal stimuli; continues to refuse medications other than gabapentin. Patient continues to deny any perceptual disturbances, pt stated, I feel God in my heart. I don't hear him. I don't see him or spirits . Patient was notified that he would be discharged home tomorrow. Patient stated he plans on spending time with my family and going for a walk when I get home . Denies SI/HI. T/W and Dr. Villalta spoke to patient's mother, Nancy, via phone. She plans on sending us documents regarding guardianship in the [facility]. Medication Compliance: No Side effects from medications: No Attending Groups: No Review of Systems Constitutional: Reports as per HPI Eyes: Reports as per HPI Reports as per HPI Cardiovascular: Reports as per HPI Respiratory: Reports as per HPI Gastrointestinal: Reports as per HPI Genitourinary: Reports as per HPI Musculoskeletal: Reports as per HPI Skin/Breast: Reports as per HPI Reports as per HPI Psychiatric: Reports as per HPI Endocrine: Reports as per HPI Hematologic/Lymphatic: Reports as per HPI Allergic/Immunologic: Reports as per HPI Mental Status Exam Mental Status Exam Narrative: Pt behavior is guarded, calm; dressed in casual attire; mood is described as good ; eye contact appropriate; Speech is normal rate, volume and prosody and not pressured; Thought content is logical with restorationist delusions; denies SI/HI. Observed responding to internal stimuli however, denies AH/VH. Patients insight and judgment are poor. Diagnostics Vital Signs (24Hr): Vital Signs - 24 hr 08/23/23 10:10 08/23/23 20:00 Temperature 98.8 F 98.1 F Pulse Rate 75 76 Respiratory Rate 16 18 Blood Pressure 122/63 122/57 L Pulse Oximetry 95 95 Oxygen Delivery Method Room Air Room Air BMI result Body Mass Index 52.2 Labs 08/15/23 00:08 08/16/23 08:20 Medications Medications Current Medications Acetaminophen (Acetaminophen 325 Mg Tablet) 650 mg PO Q6H PRN PRN Reason: Headache/Pain Mild Scale (1-3) Al Hydroxide/Mg Hydroxide (Magnesium Hydrox/Alum Hydrox 30 Ml Oral.Susp) 30 ml PO Q6H PRN PRN Reason: Heartburn/Nausea Gabapentin (Gabapentin 100 Mg Capsule) 100 mg PO BID [facility] Last Admin: 08/24/23 08:48 Dose: 100 mg Hydroxyzine HCl (Hydroxyzine Hcl 25 Mg Tablet) 25 mg PO Q6H PRN PRN Reason: Anxiety Lorazepam (Lorazepam 1 Mg Tablet) 1 mg PO BID [facility] Last Admin: 08/24/23 08:32 Dose: Not Given Magnesium Hydroxide (Milk Of Magnesia 30 Ml Oral.Susp) 30 ml PO DAILY PRN PRN Reason: Constipation Paliperidone (Paliperidone Er 3 Mg Tab.Er.24) 3 mg PO DAILY [facility] Last Admin: 08/24/23 08:33 Dose: Not Given Trazodone HCl (Trazodone Hcl 50 Mg Tablet) 50 mg PO BEDTIME MRX1 PRN PRN Reason: Insomnia Allergies Allergies Allergy/AdvReac Type Severity Reaction Status Date / Time No Known Allergies Allergy Verified 08/14/23 15:24 Assessment & Plan Assessment & Plan (1) Schizophrenia: Status: Acute Code(s): F20.9 - Schizophrenia, unspecified Plan Patient is a 28 year old male with hx of schizophrenia and multiple psychiatric inpatient admissions who presented to [facility] clinic to establish outpatient services following a recent discharge from [facility] (07/20/23-08/04/23) and [facility] (06/29/23-07/13/23) where he presented with significant psychosis. Plan: CV 15 minute safety checks Continue home medications Obtain collateral Start: Paliperidone ER 3mg PO daily; with plan to receive SUAREZ. 08/17: Patient continues to present disorganized, guarded and religiously preoccupied. Walking unit hallway, skipping at times. Observed responding to internal stimuli, states he is talking to God . T/W spoke to patient about Invega; pt stated, that was my old brain, this is my original brain and I only want to take gabapentin . During conversation patient would spontaneously blurt out statements such as, my flesh is being attracted to you and stay calm my child . Pt continues to refuse any medication other than gabapentin. Denies SI/HI/VH/AH. Continue to encourage medication compliance. 08/18: Patient continues to present disorganized and religiously preoccupied. Walking unit hallway. Observed responding to internal stimuli, states he is talking to God . T/W spoke to patient about Invega; pt stated, God tells me only gabapentin . During conversation patient would spontaneously blurt out statements such as, stay calm my child and God will protect you Sebastian . Pt continues to refuse any medication other than gabapentin. Denies SI/HI/VH/AH. When asked what he plans to do when discharged, patient stated, I'm going to spend time with my family and friends. Maybe go for a hike or to the beach . Patient is able to have logical conversations. Showered, did laundry. T/W called mother, Nancy, and left VM. Waiting for call back. 08/19: continues to decline meds 08/20: still declining meds 08/21: refusing meds. no change in presentation. 08/22: Patient continues to presents religiously preoccupied. Observed responding to internal stimuli; when asked who he is talking to pt stated, I'm talking to God and getting rid of the evil inside of me and confessing; he speaks in my heart . Patient observed moaning loudly at times with pt reporting he is getting rid of the evil . Continues to refuse medications other than gabapentin. denies SI/HI. 08/23: Met with patient with present. Patient continues to presents religiously preoccupied. Observed responding to internal stimuli; continues to refuse medications other than gabapentin. He presents with grandiose delusions; believes he is similar to Bill and God speaks to him . Patient reports he does not like taking medications because of how they make him feel. Patient states he would never hurt himself or anyone else and only wants to help people. denies SI/HI/AH/VH. T/W and Dr. Villalta spoke to patient's mother, Nancy, via phone. Various topics were discussed regarding treatment for Sebastian; such as Nancy obtaining a Alber's order, helping her son apply for [facility] services or attempting to have guardianship. Nancy expressed she has previously obtained a [place] order and had filled out guardianship documents but did not complete d/t patient's mental status improving with medication compliance. It was explained to Nancy that with the patient's current presentation he currently does not present with any behaviors that would deem him a danger to himself or someone else. He is also capable of taking care of his basic needs. The plan would be to discharge the patient home since he is refusing to participate in psychiatric treatment at this time. 08/24: Patient continues to presents religiously preoccupied, logical. Observed responding to internal stimuli; continues to refuse medications other than gabapentin. Patient continues to deny any perceptual disturbances, pt stated, I feel God in my heart. I don't hear him. I don't see him or spirits . Patient was notified that he would be discharged home tomorrow. Patient stated he plans on spending time with my family and going for a walk when I get home . Denies SI/HI. T/W and Dr. Villalta spoke to patient's mother, Nancy, via phone. She plans on sending us documents regarding guardianship in the [facility] Patient educated on: diagnosis, medication risk/benefits and therapeutic strategies Informed Consent: understands and further education needed Reason for continued inpatient stay Substantial Risk for: med/psych decompensation Time Spent With Patient Time: Total time managing care of this patient today _30___ minutes.
[2023-08-24 09:28] VITALS: BP 121/77; PULSE 83; RESP 20; TEMP 36.5; O2SAT 96
[2023-08-24 20:10] VITALS: BP 135/76; PULSE 95; RESP 18; TEMP 36.7; O2SAT 96
[2023-08-25 08:00] VITALS: BP 122/62; PULSE 75; RESP 18; TEMP 36.7; O2SAT 95
[2023-08-25] MEDS: Gabapentin 100 MG CAPSULE PO (09:11)
--- NOTE | 2023-08-25 15:27 | P.DS_ITS ---
DS: Providers Provider Date of Service: 08/25/23 Date of admission: 08/15/23 16:13 Date of discharge: 08/25/23 Primary care physician: Unknown Physician Admitting clinician: Aspen Pitts Attending physician on admission: Dragan Villalta Attending physician on discharge: Dragan Villalta Discharging clinician: Aspen Pitts DS: Diagnosis Discharge Diagnosis (1) Schizophrenia: Status: Acute DS: Medications Discharge Medications Home Medications: Previous Rx's Medication Instructions Recorded gabapentin 100 mg capsule 100 mg PO BID 30 days #60 caps 08/25/23 paliperidone 3 mg tablet,extended 3 mg PO DAILY 30 days #30 tabs 08/25/23 release 24 hr (Invega) Mental Status Exam Mental Status Exam Narrative: Pt behavior is guarded, calm; dressed in casual attire; mood is described as good ; eye contact appropriate; Speech is normal rate, volume and prosody and not pressured; Thought content is logical with spiritism delusions; denies SI/HI. Observed responding to internal stimuli however, denies AH/VH. Patients insight and judgment are poor. DS: Summary Hospital Course Hospital Course: Patient is a 28 year old male with hx of schizophrenia and multiple psychiatric inpatient admissions who presented to [facility] clinic to establish outpatient services following a recent discharge from [facility] (07/20/23-08/04/23) and [facility] (06/29/23-07/13/23) where he presented with significant psychosis. Per crisis report, pt was observed responding to internal stimuli, restless, religiously preoccupied thoughts, disorganized, paranoid. Pt has a hx of medication non compliance, [place] Orders, catatonia and has limited insight into illness. During admission assessment, patient presents disorganized, guarded, with rapid and pressured speech at times. Religiously preoccupied, observed responding to internal stimuli throughout assessment, verbally and with body movements. Patient reports he is talking to God . Pt stated, I'm here to overcome the things that happened to me and other children by the Nazi's. I remember the procedures here . Pt spontaneously screaming at times, when asked for reasoning behind this, pt stated, I get pain in my brain from the memories. It's shock pains . He reports he feels God and gabapentin will heal me . Patient educated regarding antipsychotics; however he continued to state, God only wants gabapentin . Pt denies SI/HI/VH/AH. T/W spoke with patients mother (Nancy); who reported patient was recently discharged from [facility] but continued to present with psychosis. Patient has a hx of medication non-compliance; she reports patient has a hx of receiving Invega Sustenna with positive effects. Patient does not have any outpatient providers. Patient has a hx of receiving ECT (3 or 4 treatments) in 2018 which was helpful per mother. Nancy stated she would be willing to testify in court if needed to have her son receive medications because she is concerned for his safety. During hospital stay, pt was started on: Paliperidone ER 3mg PO daily; with plan to receive SUAREZ. Patient continues to present disorganized, guarded and religiously preoccupied. Walking unit hallway, skipping at times. Observed responding to internal stimuli, states he is talking to God . T/W spoke to patient about Invega; pt stated, that was my old brain, this is my original brain and I only want to take gabapentin . During conversation patient would spontaneously blurt out statements such as, my flesh is being attracted to you and stay calm my child . Pt continues to refuse any medication other than gabapentin. Denies SI/HI/VH/AH. When asked what he plans to do when discharged, patient stated, I'm going to spend time with my family and friends. Maybe go for a hike or to the beach . Patient is able to have logical conversations. Showered, did laundry. T/W called mother, Nancy, and left VM. Waiting for call back. Patient continues to refuse medications other than gabapentin. Patient continues to present religiously preoccupied. Observed responding to internal stimuli; when asked who he is talking to pt stated, I'm talking to God and getting rid of the evil inside of me and confessing; he speaks in my heart . Patient observed moaning loudly at times with pt reporting he is getting rid of the evil . denies SI/HI. Met with patient with present. Patient continues to presents religiously preoccupied. Observed responding to internal stimuli; continues to refuse medications other than gabapentin. He presents with grandiose delusions; believes he is similar to Bill and God speaks to him . Patient reports he does not like taking medications because of how they make him feel. Patient states he would never hurt himself or anyone else and only wants to help people. denies SI/HI/AH/VH. T/Ashly and Dr. Villalta spoke to patient's mother, Nancy, via phone. Various topics were discussed regarding treatment for Sebastian; such as Nancy obtaining a Alber's order, helping her son apply for [facility] services or attempting to have guardianship. Nancy expressed she has previously obtained a [place] order and had filled out guardianship documents but did not complete d/t patient's mental status improving with medication compliance. It was explained to Nancy that with the patient's current presentation he currently does not present with any behaviors that would deem him a danger to himself or someone else. He is also capable of taking care of his basic needs. The plan would be to discharge the patient home since he is refusing to participate in psychiatric treatment at this time. Patient continues to presents religiously preoccupied, logical. Patient continues to deny any perceptual disturbances, pt stated, I feel God in my heart. I don't hear him. I don't see him or spirits . Patient was notified that he would be discharged home tomorrow. Patient stated he plans on spending time with my family and going for a walk when I get home . Denies SI/HI. T/Ashly and Dr. Villalta spoke to patient's mother, Nancy, via phone. She plans on sending us documents regarding guardianship in the state of [place]. Documents were sent to legal team, [employer] who stated, Those appear to be orders for involuntary hospitalization in [place] and a recommendation that mother be appointed as a guardian advocate during that hospitalization. A brief review of [place] law indicates they appoint a guardian advocate for someone when they are involuntarily hospitalized. It does not continue past discharge from the hospital . T/W spoke with patients father, Miguel, who visited pt this morning and stated he was aware that the documents were no longer valid. He plans on obtaining a [place] order and guardianship for patient once discharged. Patient reports feeling good today. He is looking forward to returning home. Patient denies any thought to harm himself or anyone else. He denies any perceptual disturbances. Time spent discussing smoking cessation with patient: 3 to 10 minutes Status at Discharge Cognitive/behavioral status at discharge: Patient was interviewed prior to discharge and without any SI or HI. Patient is not in imminent risk of harm to self or others and has a safety plan that includes presenting to the closest ER or calling 911 if feeling unsafe. Patient has been observed closely by nursing and unit staff throughout admission; patient has not engaged in any behaviors that suggest dangerousness to self or others and has demonstrated appropriate behaviors and impulse control. Functional status at discharge: independent ambulation Overall status at discharge: patient is back to baseline Time Spent with Patient Time attestation: Total time managing care of this patient today _30___ minutes. Time spent: Less than 30 minutes Discharge Plan Discharge Anticipated Discharge Date/Time: 08/25/23 16:00 Patient Disposition: Home, Self-Care Discharge Diagnosis: Schizophrenia Referrals: Therapy & Psychiatry [Other] - 1 Week (If you are interested in seeking outpatient therapy or psychiatry services, you can present to the clinic listed above as a walk in) Dedrick Davila MD [Physician] - 08/29/23 4:20 pm (PCP will follow up with patient for appt. scheduling. PCP appt confirmed for August 29 @ 4:20pm) Discharge Medications: New paliperidone [Invega] 3 mg Tablet Extended Release 24 Hr 3 mg PO DAILY 30 Days Qty: 30 0RF Continued gabapentin 100 mg capsule 100 mg PO BID 30 Days Qty: 60 0RF Discontinued lorazepam 1 mg tablet 1 mg PO DAILY PRN (Reason: anxiety) Discharge Orders: Discharge Order (Routine); Ordered 08/25/23 Ordered By: Aspen Pitts Diet: Regular diet Activity on Discharge: As tolerated Stand Alone Forms: Patient Portal Discharge page, Community Support Care Plan Goals: Maintain mood and safe behaviors Take medications as prescribed Practice coping skills Continue with outpatient providers and reach out to them as needed Health Concerns: Mood stability and behaviors Plan of Treatment: Follow up with your PCP, psychiatric provider and other outpatient providers regarding above concerns Take medications as prescribed Assessment: Patient was interviewed prior to discharge and without any SI or HI. Patient is not in imminent risk of harm to self or others and has a safety plan that includes presenting to the closest ER or calling 911 if feeling unsafe. Patient has been observed closely by nursing and unit staff throughout admission; patient has not engaged in any behaviors that suggest dangerousness to self or others and has demonstrated appropriate behaviors and impulse control.
== END 2023-08-25 16:15 | disposition home or self-care (01) | DRG 750 ==
LOC: HO.ED 16:34 → HO.PADLT16 08-15 16:28
PROVIDERS: Admitting Provider Psychiatry & Neurology Psychiatry; Emergency Provider Emergency Medicine; Responsible Provider Registered Nurse; Visit Provider Psychiatry & Neurology Psychiatry
DX: F20.9 Schizophrenia, unspecified (principal); Z91.148 Patient's other noncompliance with medication regimen for other reason; Z20.822 Contact with and (suspected) exposure to COVID-19; Z79.899 Other long term (current) drug therapy
CPT/HCPCS: 36415; 80053; 80061; 80143; 80179; 80307; 81003; 85025; 87635; 93005; 99285

== ENCOUNTER → 2023-08-15 16:13 | Outpatient (BNV) | payer OTHER, SELFPAY | PROVIDERS: Admitting Provider Psychiatry & Neurology Psychiatry; Emergency Provider Emergency Medicine; Responsible Provider Registered Nurse; Visit Provider Psychiatry & Neurology Psychiatry | DX: F20.89 Other schizophrenia (principal) | CPT/HCPCS: 99231; 99232 ==

== ENCOUNTER → 2023-08-15 16:13 | Outpatient (BNV) | payer OTHER, SELFPAY | PROVIDERS: Admitting Provider Psychiatry & Neurology Psychiatry; Emergency Provider Emergency Medicine; Responsible Provider Registered Nurse; Visit Provider Registered Nurse | DX: F20.89 Other schizophrenia (principal) | CPT/HCPCS: 99231; 99233 ==